=== PATIENT | female | born 1960 | race Caucasian/White ===

== ENCOUNTER 2020-03-09 17:29 | Emergency (ER) | payer OTHER ==
[~2020-03-09] VITALS: Ht 165.1 cm; Wt 108.9 kg
[~2020-03-09 17:29] MED LIST: CIPRO500 M1 PO; NORCO 5-325 TA1 EACH PO; ZOFRAN4 MG PO
[2020-03-09] MEDS ORDERED: METFORMIN HCL500 M3 PO (17:43)
[2020-03-09] MEDS ORDERED: LEVO-T50 MCG PO (17:43)
[2020-03-09] MEDS ORDERED: AMARYL2 M1 PO (17:44)
[2020-03-09] MEDS ORDERED: VOLTAREN 50MG T50 MG PO (17:44)
[2020-03-09] MEDS ORDERED: SERTRALINE HCL100 MG PO (17:45)
[2020-03-09 18:48] LABS: URINE BILIRUBIN NEGATIVE (Negative); URINE BLOOD NEGATIVE (Negative); URINE CLARITY CLEAR; URINE COLOR YELLOW; URINE GLUCOSE-RANDOM* NEGATIVE (Negative); URINE KETONES NEGATIVE (Negative); URINE LEUKOCYTES-REFLEX TRACE (Negative); URINE NITRITE-REFLEX NEGATIVE (Negative); URINE PROTEIN (DIPSTICK) NEGATIVE (Negative); URINE SPECIFIC GRAVITY <= 1.005 (1.005-1.035); URINE UROBILINOGEN 0.2 E.U./dl (0.2-1.0)
[2020-03-09] MEDS ORDERED: NORFLEX100 MG PO (18:58)
[2020-03-09] MEDS ORDERED: PREDNISONE 10 M10 MG PO (18:58)
[2020-03-09 19:15] VITALS: BP 167/71
== END 2020-03-09 19:27 | disposition home or self-care (01) ==
LOC: ER 17:29
PROVIDERS: Physician Assistant
DX: M54.41 Lumbago with sciatica, right side (principal); G89.29 Other chronic pain; J45.909 Unspecified asthma, uncomplicated; Z79.2 Long term (current) use of antibiotics; Z79.899 Other long term (current) drug therapy; Z88.8 Allergy status to other drugs, medicaments and biological substances

== ENCOUNTER 2020-07-12 19:01 | Emergency (ER) | payer OTHER ==
[~2020-07-12] VITALS: Ht 167.6 cm; Wt 108.9 kg
[~2020-07-12 19:01] MED LIST changes: +AMARYL2 M1 PO; +LEVO-T50 MCG PO; +METFORMIN HCL500 M3 PO; +NORFLEX100 MG PO; +PREDNISONE 10 M10 MG PO; +SERTRALINE HCL100 MG PO; +VOLTAREN 50MG T50 MG PO
[2020-07-12 20:23] LABS: URINE BILIRUBIN NEGATIVE (Negative); URINE BLOOD 1+ (Negative); URINE CLARITY CLEAR; URINE COLOR YELLOW; URINE GLUCOSE-RANDOM* NEGATIVE (Negative); URINE KETONES NEGATIVE (Negative); URINE NITRITE-REFLEX NEGATIVE (Negative); URINE PROTEIN (DIPSTICK) NEGATIVE (Negative); URINE SPECIFIC GRAVITY <= 1.005 (1.005-1.035); URINE UROBILINOGEN 0.2 E.U./dl (0.2-1.0)
[2020-07-12 20:25] LABS: URINE LEUKOCYTES-REFLEX 1+ (Negative)
[2020-07-12 21:07] LABS: ABSOLUTE NEUTROPHILS 4.9 thou/uL (1.4-8.2); BASOPHILS 0.2 % (0.0-2.0); EOSINOPHILS 1.3 % (0.0-3.0); HEMATOCRIT 38.6 % (37.0-47.0); HEMOGLOBIN 12.5 gm/dL (12.0-15.0); LYMPHOCYTES 19.7 % (24.0-44.0); MCH 27.5 pg (26.0-34.0); MCHC 32.5 g/dL (28.0-37.0); MCV 84.6 fL (80.0-100.0); MONOCYTES 5.4 % (1.0-8.0); PLATELET COUNT 136 thou/uL (150-400); POLYS 73.4 % (36.0-66.0); RBC 4.57 mil/uL (4.20-5.00); RDW 15.1 % (10.5-14.5); WBC 6.6 thou/uL (4.0-11.0)
[2020-07-12 21:10] LABS: SQUAMOUS 4-10 Moderate /LPF (0-3); URINE WBC-REFLEX 6-15 Few /HPF (0-5)
[2020-07-12 21:10] LABS: ANION GAP 11 mmol/L (7-16); BUN 20 mg/dL (7-18); CALCIUM 9.7 mg/dL (8.5-10.1); CHLORIDE 102 mmol/L (98-107); CO2 24 mmol/L (21-32); CREATININE 1.1 mg/dL (0.6-1.0); GLUCOSE 165 mg/dL (74-106); POTASSIUM 3.9 mmol/L (3.5-5.1); SODIUM 137 mmol/L (136-145)
[2020-07-12 21:11] LABS: BACTERIA-REFLEX 1-9 Few /HPF (None Seen); CASTS None Seen /LPF (None Seen); CRYSTALS None Seen /LPF (None Seen); MUCUS 0-3 Light strn/LPF (None Seen); URINE RBC 3-10 Few /HPF (0-2)
[2020-07-12 21:20] LABS: ALBUMIN 3.8 g/dL (3.4-5.0); LIPASE 133 U/L (73-393); SGOT 28 U/L (15-37); SGPT 37 U/L (30-65); TOTAL BILIRUBIN 0.5 mg/dL (0.2-1.0); TOTAL PROTEIN 9.4 g/dL (6.4-8.2); TROPONIN-I <0.06 ng/mL (<0.06)
[2020-07-12] MEDS ORDERED: MACROBID 100 M100 M1 PO (21:33)
[2020-07-12 21:50] VITALS: BP 160/90
--- NOTE | 2020-07-13 07:36 | EKG ---
[facility] [place] [address] ELECTROCARDIOGRAM REPORT Name: PIERCE SHRESTHA Room #: [facility]#: [id number] Admission: 07/12/20 Attend Phys: Discharge: 07/12/20 Date of : 58 Report #: [id number] 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 : 1960 Requested By: Lennox Bauer Order Number: [id number] MD: Deon Lauren Measurements Intervals [place] Rate: 91 P: -9 [place]: 190 QRS: -12 QRSD: 99 T: -3 QT: 366 QTc: 451 Interpretive Statements Sinus rhythm Abnormal R-wave progression, late transition Left ventricular hypertrophy Borderline T abnormalities, inferior leads Compared to ECG 12/06/1990 08:35:00 Left ventricular hypertrophy now present T-wave abnormality now present First degree AV block no longer present Electronically Signed On 07-13-2020 7:36:04 [employer] by Deon Lauren [email or web address] <ELECTRONICALLY SIGNED> By: Deon Lauren MD, [facility] 07/13/20 0736 20 20 Deon Lauren MD, [facility] /EPI
== END 2020-07-12 21:53 | disposition home or self-care (01) ==
LOC: ER 19:01
PROVIDERS: Emergency Medicine
DX: N39.0 Urinary tract infection, site not specified (principal); R07.89 Other chest pain; E11.65 Type 2 diabetes mellitus with hyperglycemia; R42 Dizziness and giddiness; E11.9 Type 2 diabetes mellitus without complications; J45.909 Unspecified asthma, uncomplicated; Z79.899 Other long term (current) drug therapy; Z79.2 Long term (current) use of antibiotics; Z88.6 Allergy status to analgesic agent